=== PATIENT | male | born 1975 | race Caucasian/White ===

== ENCOUNTER 2025-03-02 04:16 | Emergency (ER) | payer OTHER, SELFPAY ==
[2025-03-02] VITALS (15 sets, daily range): BP systolic 147–165; BP diastolic 96–116; PULSE 70–103; RESP 9–15; TEMP 36.7; O2SAT 96–99
--- NOTE | ~2025-03-02 | XR_ITS ---
Clinical Indication: Chest pain PA and lateral views of the chest: Comparison: None Findings: Calcified right midlung granuloma present. There is probable right apical bullous change or scarring. Left lung clear.. Cardiomediastinal silhouette is within normal limits. Bones and soft ti ssues are unremarkable. Impression: No acute abnormality. Probable right apical bullous change or scarring. Correlate for underlying COPD. Reviewed, dictated and finalized at location . Impression: No acute abnormality. Probable right apical bullous change or scarring. Correlate for underlying COPD .
--- NOTE | 2025-03-02 04:17 | ECG_ITS ---
Test Date: 2025-03-02 04:11:05 Measurements Intervals [place] Rate: 74 P: 46 HI: 146 QRS: 62 QRSD: 82 T: 62 QT: 377 QTc: 418 Interpretive Statements SINUS RHYTHM POSSIBLE RIGHT VENTRICULAR CONDUCTION DELAY [RSR (QR) IN V1/V2] No previous ECG available for comparison Electronically Signed On 03-02-2025 17:58:55 CDT by Marin Maki
[2025-03-02 04:36] LABS: Hematocrit 50.2 % (42.0-52.0); Hemoglobin 17.1 g/dL (14.0-18.0); Immature Granulocyte Percent A 0.1 % (0-0.5); Lymphocytes Absolute Auto 3.18 K/mm3 (0.9-3.2); Mean Corpuscular HGB Conc 34.1 g/dl (32-36); Mean Corpuscular Hemoglobin 32.5 pg (26-34); Mean Corpuscular Volume 95.4 fl (80-100); Nucleated Red Blood Cells Absolute Auto 0.000 K/mm3 (0.0-0.012); Nucleated Red Blood Cells Perc 0.0 % (0.0-0.2); Platelet Count Result 377 k/mm3 (150-375); Red Blood Count 5.26 M/mm3 (4.6-6.20); White Blood Count 8.1 K/mm3 (4.5-10.0)
[2025-03-02 04:48] LABS: Alanine Aminotransferase 25 U/L (6-50); Albumin Level 4.7 g/dL (3.5-5.1); Alkaline Phosphatase 78 U/L (38-126); Anion Gap 14 mmol/L (4-12); Aspartate Amino Transferase 46 U/L (17-59); Bilirubin,Total 0.5 mg/dL (0.2-1.3); Blood Urea Nitrogen 9 mg/dL (9-20); Calcium 9.0 mg/dL (8.4-10.2); Carbon Dioxide 24 mmol/L (22-30); Chloride 101 mmol/L (98-107); Estimated Glomerular Filt Rate > 60; Glucose 111 mg/dL (65-110); Potassium 3.3 mmol/L (3.4-5.0); Sodium 139 mmol/L (137-145); Total Protein 8.6 g/dL (6.3-8.2)
[2025-03-02 04:58] LABS: Troponin I 0.012 ng/mL (0.000-0.034)
--- NOTE | 2025-03-02 05:17 | ED.CHESTPAIN ---
HPI - Chest Pain General Chief Complaint: Chest Pain Stated Complaint: cp+sobx3, pain Time Seen by Provider: 03/02/25 05:12 Source: patient and RN notes reviewed Mode of arrival: EMS Limitations: no limitations History of Present Illness HPI narrative: Patient presents with chest pain and shortness of breath that started 3-4 hours prior to arrival. He states it is worse with movement and deep breath. He has a history of an MRI with a stent placed at [facility] in 2021 (circumflex). He is on Plavix but otherwise no other anticoagulation. He reports being nauseated vomiting but denies diaphoresis. Pain is on the left of chest and radiates into the left arm which he states was tingling. No recent surgeries. He has been coughing but denies hemoptysis. Cardiac risk factors HTN: Yes HLD: Yes DM: no Obese: No Smoker: no Personal history WY/TIA/CVA: Yes Fam Hx W[place] in first degree relative <65yo: no Related Data Home Medications ?Medication ?Instructions ?Recorded ?Confirmed ?Last Taken ?Type aspirin 81 mg chewable tablet 03/02/25 Unknown History atorvastatin 40 mg tablet mg 03/02/25 Unknown History clopidogrel 75 mg tablet mg 03/02/25 Unknown History isosorbide mononitrate 30 mg mg PO 03/02/25 Unknown History tablet,extended release 24 hr nitroglycerin 0.4 mg sublingual mg 03/02/25 Unknown History tablet Allergies Allergy/AdvReac Type Severity Reaction Status Date / Time No Known Allergies Allergy Verified 03/02/25 04:25 FORMERLY [facility], [facility] Past Medical History Medical History Hypertension Hyperlipidemia Myocardial infarction Surgical History Surgical History Stented coronary artery Circumflex, 2021, [facility] Social History Social History (Updated 03/02/25 @ 07:46 by Norma Hood MD) Smoking status: Never smoker Occupation/Education: occupation Exam Narrative: GENERAL: Well-appearing, well-nourished, and in no acute distress. HEAD: Normocephalic, atraumatic. EYES: Non injected, non icteric ENT: Nares clear, no rhinorrhea or epistaxis. Gross auditory acuity intact. NECK: Supple. No meningismus. CHEST: Speaking in full sentences. No respiratory distress. Lungs clear to auscultation bilaterally. Pain is not reproducible to palpation HEART: Regular rate and rhythm. . ABDOMEN: Soft, nondistended. No rigidity or guarding. Not peritoneal EXTREMITIES: Normal range of motion. No bilateral lower extremity edema. No TTP inferior to L shoulder girdle SKIN: Warm, dry, no rash. NEURO: No focal deficits. Alert and oriented. Answering questions. Following commands. Normal speech without aphasia or dysarthria. PSYCH: Normal mood and affect. Course Vital Signs Vital signs: Vital Signs Temperature 98.0 F 03/02/25 04:19 Pulse Rate 74 03/02/25 04:19 Respiratory Rate 14 03/02/25 04:19 Blood Pressure 164/116 H 03/02/25 04:19 Pulse Oximetry 96 03/02/25 04:19 Oxygen Delivery Room Air 03/02/25 04:19 Temperature 98.0 F 03/02/25 04:19 Pulse Rate 70 03/02/25 08:06 Respiratory Rate 15 03/02/25 08:06 Blood Pressure 165/103 H 03/02/25 08:06 Pulse Oximetry 97 03/02/25 08:06 Oxygen Delivery Room Air 03/02/25 04:19 MDM - Chest Pain MDM Narrative Medical decision making narrative: Patient presents with chest pain and shortness of breath. Pain is worse with movement as well as deep breaths. History of [place] status post stent to the circumflex In the emergency department he is afebrile with vital signs notable for hypertension. HEART SCORE History 2 highly suspicious 1 moderately suspicious 0 slightly suspicious History score [address] depression/elevation not due to LBBB, LVH, or digoxin [address] depression but LBBB, LVH, nonspecific repolarization changes 0 normal ECG score 0 Age 2 >/= 65 1 45-64 0 <45 Age score 1 Risk factors (HTN, hypercholesterolemia, DM, obesity with BMI >30, current smoker or cessation </=3mo), positive fam hx with parent or sibling with CVD before age 65, atherosclerotic disease (prior [place], PCI/CABG, CVA/TIA, or peripheral arterial disease) 2 >/= 3 risk factors or history of atherosclerotic dz 1 - 1-2 risk factors 0 no known risk factors Risk factor score 2 Initial Troponin 2 >3 times normal limit 1 1-3 times normal limit 0 less than or equal to normal limit Troponin score 0 Total HEART Score 3. Mild hypokalemia. Oral repletion ordered. BNP only mildly elevated, not to a degree to suggest acute heart failure based on the reference range of the assay for patient's age. Dimer normal. Patient reassessed at 6:30 a.m.. He is sleeping, resting comfortably. When awakened he states that his pain is much better. He later states he is having pain again. Morphine ordered. Patient is reassessed at about 7:45 a.m. he states his pain is much better. 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 He notes that it has been awhile since he saw his affirmative action officer to is in [facility] and through [facility]. Does not know if he would be able to reestablish with them although I did encourage this. Alternatively, he will be given the name of a affirmative action officer in [place]. He also notes that he has been out of his Imdur for the past 2-3 days. Will refill this. Denies any Plavix, nitroglycerin, or other medications he takes. He confirms he has a primary care physician. He reports that he had been taking nitroglycerin at home but no change in symptoms. Differential Diagnosis Differential diagnosis: Likely pneumothorax, stable angina, unstable angina pectoris, atypical chest pain, st elevation myocardial infarction, chest pain, biliary colic and other (Pneumonia, pulmonary embolism; musculoskeletal) Lab Data Attestation: I reviewed the patient's lab results. Lab results narrative: Mild thrombocytosis 03/02/25 04:20 03/02/25 04:20 Labs: Lab Results 03/02/25 03/02/25 03/02/25 Range/Units 04:20 06:14 07:02 WBC 8.1 (4.5-10.0) K/mm3 RBC 5.26 (4.6-6.20) M/mm3 Hgb 17.1 (14.0-18.0) g/dL Hct 50.2 (42.0-52.0) % MCV 95.4 (80-100) fl MCH 32.5 (26-34) pg MCHC 34.1 (32-36) g/dl RDW 13.8 (11.5-14.5) % Plt Count 377 H (150-375) k/mm3 MPV 8.5 (7.4-10.4) fl Immature Gran % (Auto) 0.1 (0-0.5) % Neut % (Auto) 50.8 (45.5-73.1) % Lymph % (Auto) 39.4 (18.3-44.2) % [place] % (Auto) 6.6 (2.6-8.5) % Eos % (Auto) 1.7 (0-4.4) % Baso % (Auto) 1.4 H (0.2-1.2) % Lymph # (Auto) 3.18 (0.9-3.2) K/mm3 [place] # (Auto) 0.5 (0.1-0.6) K/mm3 Eos # (Auto) 0.1 (0-0.3) K/mm3 Baso # (Auto) 0.1 (0.0-0.1) K/mm3 Abs Immat Gran (auto) 0.01 (0.00-0.031) K/mm3 Absolute Neuts (auto) 4.1 (1.3-6.7) K/mm3 Absolute Nucleated RBC 0.000 (0.0-0.012) K/mm3 Nucleated RBC % 0.0 (0.0-0.2) % D-Dimer < 0.27 (<0.48) ug/mL Sodium 139 (137-145) mmol/L Potassium 3.3 L (3.4-5.0) mmol/L Chloride 101 (98-107) mmol/L Carbon Dioxide 24 (22-30) mmol/L Anion Gap 14 H (4-12) mmol/L BUN 9 (9-20) mg/dL Creatinine 1.16 (0.7-1.3) mg/dL Estim Creat Clear Calc Not Reportable Estimated GFR > 60 (59 - ) Glucose 111 H (65-110) mg/dL Calcium 9.0 (8.4-10.2) mg/dL Magnesium 2.0 (1.6-2.3) mg/dL Total Bilirubin 0.5 (0.2-1.3) mg/dL AST 46 (17-59) U/L ALT 25 (6-50) U/L Alkaline Phosphatase 78 (38-126) U/L Troponin I 0.012 < 0.012 (0.000-0.034) ng/mL NT-Pro-B Natriuret Pep 145 H (19.9-100) pg/mL Total Protein 8.6 H (6.3-8.2) g/dL Albumin 4.7 (3.5-5.1) g/dL Influenza A (RT-PCR) Negative (Negative) Influenza B (RT-PCR) Negative (Negative) RSV (RT-PCR) Negative (Negative) SARS-CoV-2 RNA (RT-PCR) Negative (Negative) Imaging Data Attestation: I personally reviewed and interpreted this imaging study as follows: My impression: Slight haziness of right middle lobe on my independent interpretation of chest x-ray Radiologist's impression: Impressions Chest X-Ray 03/02/25 05:47 Impression: No acute abnormality. Probable right apical bullous change or scarring. Correlate for underlying COPD. ECG Data EKG #1: Attestation: I personally reviewed and interpreted this ECG as follows: ECG completion date: 03/02/25 ECG completion time: 04:11 Prior ECG tracings: not available for review (No prior for comparison) Interpretation: Normal sinus rhythm at a rate of 74 beats per minute. HI interval 146. QRS 82. QT/QTC 377/404. Good R-wave progression across the precordial leads. No T-wave inversions. RSR pattern in V1 and V2. EKG #2: Attestation: I personally reviewed and interpreted this ECG as follows: ECG completion date: 03/02/25 ECG completion time: 07:08 Interpretation: Normal sinus rhythm at a rate of 67 beats per minute. HI interval 148. QRS 85. QT/QTC 406/421. Good R-wave progression across the precordial leads. No T-wave inversions. Normal axis. Normal ECG. Discharge Plan Discharge Clinical Impression: Chest pain, Thrombocytosis, Hypokalemia, Encounter for medication refill Patient Disposition: Home Condition: Stable Instructions: Antibiotic Form, Chest Pain (DC), Hypokalemia (ED) Additional Instructions: It is important you follow-up with Cardiology, either through the affirmative action officer you previously saw years ago in [place] through [employer] [facility] or, alternatively, the name of a affirmative action officer is listed below. Your Imdur is being refilled. Continue taking all of your medications as prescribed. Return to the emergency department any new or worsening symptoms. Follow-up with your primary care physician as well. Patient Language: Telugu Prescriptions: New isosorbide mononitrate 30 mg tablet extended release 24 hr 30 mg PO DAILY Qty: 30 0RF No Action isosorbide mononitrate 30 mg tablet extended release 24 hr PO clopidogrel 75 mg tablet aspirin 81 mg tablet,chewable atorvastatin 40 mg tablet nitroglycerin 0.4 mg tablet, sublingual Follow-up/Referrals: Marin Maki MD [Physician] - (cardiology) Stand Alone Forms: Work/School Release IP Time of Disposition: 07:53
[2025-03-02] MEDS: NITROGLYCERIN SL 0.4 MG TABLET SUBLINGUAL (05:34)
[2025-03-02] MEDS: POTASSIUM BICARBONATE 25 MEQ TABEF PO (05:40)
[2025-03-02 05:50] LABS: NT Pro B Type Natriuretic Pept 145 pg/mL (19.9-100)
--- OUTSIDE RECORDS SUMMARY | 2025-03-02 06:07 | XMS_ITS | Referral Summary ---
Author Organization [facility] Address [address] [place] [address] Care Team Providers Care A And P Technician Name Role Phone Irineo Meza MD Unavailable [phone] Rupert Lopes MD Primary Care Provider [phone] Allergies No known active allergies Medications aspirin 81 mg enteric coated tabletIndication s:cardiovascular disease Take 1 tablet (81 mg total) by mouth daily 30 tablet 11 2 Active atorvastatin (LIPITOR) 40 mg tablet Take 1 tablet (40 mg total) by mouth nightly 30 tablet 11 2 Active clopidogreL (PLAVIX) 75 mg tablet Take 1 tablet (75 mg total) by mouth daily Active levothyroxine (SYNTHROID) 100 mcg tablet Take 1 tablet (100 mcg total) 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 Active isosorbide mononitrate ER (IMDUR) 30 mg 24 hr tablet Take 1 tablet (30 mg total) by mouth daily 30 tablet 3 Active Active Problems Problem Noted Date Diagnosed Date Acute chest pain 09/30/2023 Chest pain, rule out acute myocardial infarction 04/23/2023 Dyslipidemia 04/23/2023 HTN (hypertension) 04/23/2023 CAD (coronary artery disease) 04/23/2023 Hypothyroid 04/23/2023 Resolved Problems Problem Noted Date Diagnosed Date Resolved Date Chest pain, unspecified type 07/30/2023 09/30/2023 Other chest pain 07/30/2023 09/30/2023 NSTEMI (non-ST elevated myoc ardial infarction) 04/01/2022 04/24/2023 Overview (04/02/2022): Added automatically from request for surgery [id number] Social History Tobacco Use Types Packs/Day Years Used Date Smoking Tobacco: Every Day Cigarettes Tobacco Cessation:Ready to Q uit: Not Asked [facility] Utilities Answer Date Recorded In the past 12 months has e [employer], gas, oil, or water [employer] threatened to shut off services in your home? No 10/02/2023 Social Connection and Isolat ion Panel [NHANES] Answer Date Recorded In a typical week, how many times do you talk on the phone with family, friends, or neighbors? More than three times a week 10/02/2023 Frequency of Social Gatherin gs with Friends and Family Not on file 10/02/2023 How often do you attend chur ch or confucianism services? Never 10/02/2023 Do you belong to any clubs o r organizations such as protestant groups, unions, fraternal or athletic groups, or school groups? No 10/02/2023 How often do you attend meet ings of the clubs or organizations you belong to? Never 10/02/2023 Are you , , di vorced, , never , or living with a partner? Living with partner 10/02/2023 AUDIT-C Answer Date Recorded Q1: How often do you have a drink containing alc ohol? 2-3 times a week 10/02/2023 Q2: How many drinks containi ng alcohol do you have on a typical day when you are drinking? 3 or 4 10/02/2023 Q3: How often do you have si x or more drinks on one occasion? Never 10/02/2023 Overall Financial Resource Strain (CARDIA) Answe r Date Recorded How hard is it for you to pa y for the very basics like food, housing, medical care, and heating? Not hard at all 10/02/2023 Hunger Vital Sign Answer Date Recorded Within the past 12 months, y ou worried that your food would run out before you got the money to buy more. Never true 10/02/19 24 Within the past 12 months, t he food you bought just didn't last and you didn't have money to get more. Never true 10/02/2023 PRAPARE - Transportation Answer Date Re corded In the past 12 months, has l ack of transportation kept you from medical appointments or from getting medications? No 09/04 In the past 12 months, has l ack of transportation kept you from meetings, work, or from getting things needed for daily living? No 10/02/2023 Housing Stability Vital Sign Answer Zechariah e Recorded In the last 12 months, was t here a time when you were not able to pay the mortgage or rent on time? No 10/02/2023 In the last 12 months, how many places have you lived? 1 10/02/2023 In the last 12 months, was t here a time when you did not have a steady place to sleep or slept in a retirement (including now)? No 10/02/2023 Personal Safety Answer Date Recorded Have you ever been in or are you currently in a harmful physical or emotional relationship or is someone making you feel afraid or unsafe? Denies 10/01/2023 Sex and Gender Information Value Date Recorded Sex Assigned at Not on file Legal Sex Male 12:41 PM CDT Gender Identity Not on file Sexual Orientation Not on file Last Filed Vital Signs Vital Sign Reading Time Taken Comments Blood Pressure 115/74 10/02/2023 4:43 PM GREIGE MENDER Pulse 59 10/02/2023 4:00 AM GREIGE MENDER Temperature 36.9 C (98.5 F) 10/02/2023 4:43 PM GREIGE MENDER Respiratory Rate 17 10/02/2023 4:43 PM GREIGE MENDER Oxygen Saturation 97% 10/02/2023 4:43 PM GREIGE MENDER Inhaled Oxygen Concentration - - Weight 84.6 kg (186 lb 6.4 oz) 10/01/2023 12:36 AM GREIGE MENDER Height 185.4 cm (6' 0.99) 10/01/2023 12:[address] Body Mass Index 24.6 10/01/2023 12:36 AM GREIGE MENDER Plan of Treatment Not on file Medical Devices Implanted Type Area Filtering Machine Tender Helper Device Identifier Shelf Expiration Date Model / Serial / Lot [employer] Resolute Sourav Ux 3.0x38mm Carlos Stent [id number] - [id number] Implanted:Qty: 1 on 04/02/2022 by Irineo Meza MD at [facility] [employer] 11/06/2024 [id number] / / [id number] Insurance [facility] Address: [place] [address] [facility]O Address: [place] [address] [employer] [facility]O Address: [facility] [address] [place] [address] Advance Directives For more information, please contact: [phone] * Full Code (Latest Code Status on File) Date Activated Date Inactivated Comments 09/30/2023 11:18 PM 10/03/2023 2:46 AM * Full Code Date Activated Date Inactivated Comments 09/30/2023 7:22 PM 09/30/2023 11:18 PM * Full Code Date Activated Date Inactivated Comments 07/30/2023 9:31 AM 07/30/2023 8:50 PM * Full Code Date Activated Date Inactivated Comments 04/23/2023 9:24 PM 04/25/2023 9:58 PM * Full Code Date Activated Date Inactivated Comments 04/23/2023 4:25 PM 04/23/2023 9:24 PM Care Teams A And P Technician Relationship Specialty Start Date End Date Rupert Lopes MD [address] [place] [address] PCP - General Internal Medicine 04/24/23 Irineo Meza MD [address] [place] [address] Consulting Physician Cardiovascular Disease 04/03/22
--- OUTSIDE RECORDS SUMMARY | 2025-03-02 06:07 | XMS_ITS | Clinical Summary ---
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 Active isosorbide mononitrate ER (IMDUR) [...] (04/02/2022): Added automatically from request for surgery [id number] Surgical History Surgery Date Site/Laterality Comments CARDIAC STENT PLACEMENT Medical History Medical History Date Comments Heart attack (HCC) Social History Tobacco Use Types Packs/Day Years Used Date Smoking Tobacco: Every Day Cigarettes Tobacco Cessation:Ready to Q uit: Not Asked [facility] Utilities Answer Date Recorded In the past 12 months has th e [employer], gas, oil, or water [employer] threatened to shut off services in your [...] 10/02/2023 How often do you attend chur or pentecostalism services? Never 10/02/2023 Do you belong to any clubs o r organizations such as buddhist groups, unions, fraternal or athletic groups, or [...] place to sleep or slept in a correction (including now)? No 10/02/2023 Personal Safety Answer [...] on file Sexual Orientation Not on file Obstetrics History Last Filed Vital Signs Vital Sign Reading Time Taken Comments Blood Pressure 115/74 10/02/2023 4:43 PM RUG REPAIRER Pulse 59 10/02/2023 4:00 AM RUG REPAIRER Temperature 36.9 C (98.5 F) 10/02/2023 4:43 PM RUG REPAIRER Respiratory Rate 17 10/02/2023 4:43 PM RUG REPAIRER Oxygen Saturation 97% 10/02/2023 4:43 PM RUG REPAIRER Inhaled Oxygen Concentration - - Weight 84.6 kg (186 lb 6.4 oz) 10/01/2023 12:36 AM RUG REPAIRER Height 185.4 cm (6' 0.99) 10/01/2023 12:[address] Body Mass Index 24.6 10/01/2023 12:36 AM RUG REPAIRER Plan of Treatment Health Maintenance Due Date Last Done Comments Colon Cancer Screening-Colonoscopy 1976 Depression Screening 1976 Hepatitis C Screening 1976 DTaP/Tdap/Td Vaccine (1 - Tdap) 1987 Hepatitis B Screening 1994 Regular Well Visit/Exam 18-64 1994 Pneumococcal vaccine <65 (1 of 2 - PCV) 1995 Influenza Vaccine (Season Ended) 2025 06/04/20 22 Medical Devices Implanted Type Area Millwork Estimator Device Identifier Shelf Expiration Date Model / Serial / Lot [employer] Resolute Sourav Ux 3.0x38mm Carlos Stent [id number] - [id number] Implanted:Qty: 1 on 04/02/2022 by Irineo Meza MD at [facility] [employer] 11/06/2024 [id number] / / [id number] Insurance [facility] CHOICE PLUS CHOICE PLUS [place] [id number] [facility] CHOICE PLUS Advance Directives For more information, please contact: [phone] * Full Code (Latest Code Status on [...] 4:25 PM 04/23/2023 9:24 PM Care Teams Professional Benefits Sales Consultant Relationship Specialty Start Date End Date Rupert Lopes MD [address] [place] [address] PCP - General Internal Medicine 04/24/23 Irineo Meza MD [address] [place] [address] Consulting Physician Cardiovascular Disease 04/03/22
--- OUTSIDE RECORDS SUMMARY | 2025-03-02 06:07 | XMS_ITS | Data Portability ---
Author Organization [place] [facility], Main Office Address [address] [place] [address] Care Team Providers Care Strawhat Sizer Name Role Phone ROSEYJEREMI ANALIDARIA Primary Care Provider [phone] KANIKA MEZA Tile Setter Supervisor Assessment Encounter Date Assessment Date Assessment LastModified by Organization Details LastModified Time 11/26/2022 11/26/2022 I have reconciled the patient's medications post their discharge from inpatient facility. Secondary preventive measures for heart disease have been discussed importance of taking medications as prescribed discussed he will follow-up in 3 months all questions answered hypothyroid hypertension dyslipidemia CAD discussed [email or web address] Not available 12/08/2022 20:59:24 07/02/2024 07/02/2024 I have reconciled the patient's medications post their discharge from inpatient facility. [email or web address] Not available 07/02/2024 10:29:00 Plan of Treatment Reminders Order Date Submit Date Provider Last Modified By Organization Details Last Modified Time Details Appointments None recorded. Lab glycohemogl obin, total, blood 2023 024 [email or web address] [facility] (Lab), [address] [place], [address], 5 12:41:38 microalbumi n, urine 2023 024 [email or web address] [facility] (Lab), [address] [place], [address], 5 10:30:51 noninvasive colorectal cancer DNA + occult blood screening, QL, stool 2023 024 GABBI [facility] (Cologuard Orders Only), [address], [address], [place], [address], 4 19:47:01 lipid panel, serum 2023 024 [email or web address] 6 [facility] (Lab), [address] [place], [address], 5 12:41:37 TSH, serum or plasma [email or web address] [place] [address] (Lab), [address] [place], [address], 5 12:41:37 CBC w/ auto diff 2023 024 [email or web address] [address] [place] [address] (Lab), [address] [place], [address], 5 12:41:37 CMP, serum or plasma 2023 024 [email or web address] [address] [place] [address] (Lab), [address] [place], [address], 5 12:41:37 vitamin B12 + folate, serum or blood 2023 024 [email or web address] [address] [place] [address] (Lab), [address] [place], [address], 5 12:41:38 noninvasive colorectal cancer DNA + occult blood screening, QL, stool 2023 024 [email or web address] 6 [facility] (Cologuard Orders Only), [address], [address], [place], [address], 5 12:50:52 lipid panel, serum 2023 [email or web address] [place] [address] (Lab), [address] [place], [address], 5 12:50:51 TSH, serum or plasma 2023 024 [email or web address] 6 [facility] (Lab), [address] [place], [address], 5 12:50:51 CBC w/ auto diff 2023 [email or web address] [place] [address] (Lab), [address] [place], [address], 5 12:50:51 CMP, serum or plasma 2023 [email or web address] [place] [address] (Lab), [address] [place], [address], 5 12:50:51 vitamin B12 + folate, serum or blood 2023 [email or web address] [place] [address] (Lab), [address] [place], [address], 5 12:50:52 Referral nephrologis t referral - Please call patient to schedule. 2023 024 [email or web address] 6 Howard Perez MD (Nephrology, [address], [address], [place], [address], 5 11:30:06 safety counselor referral - Please call patient to schedule. 2023 024 [email or web address] 6 Herminio Razo DPM, [address] [facility], [address], [place], [address], 5 11:30:05 cardiologis t referral 2023 024 [email or web address] Kanika Meza MD, [address] [facility], [address], [place], [address], 12:29:13 cardiologis t referral 2023 [email or web address] Kanika Meza MD, [address], [address], [place], [address], 08:32:36 Procedures None recorded. Surgeries None recorded. Imaging None recorded. Medication Orders Unithroid 125 mcg tablet 2023 [facility] #[id number], [address], [place], [address], 10:48:50 Patient TargetsNo targets recorded. Patient Instructions Encounter Date Encounter Id Patient Instructions Last Modified By Organization Details Last Modified Time 11/26/2022 [id number] Thank you for your visit to our office today. We would like to request that you reach out to your referring or previous provider and request that they send us a Summary of Care in electronic form, so that we may have it on file in your medical record. At your visit, we had the medical records we needed to provide you with the best possible care; however, for insurance purposes, an electronic Summary of Care is beneficial. Thank you for your assistance in obtaining this information and we look forward to providing continued care to you. Please review your medication list from the Summary of Care for this visit. If there are any differences from what you are currently taking at home, please call us to discuss. Not available 11/26/2022 10:41:41 Homebound Status : Required Home Health Services: Durable Medical Equipment needed: Billing Guidelines CPT code 62536- Transitional Care Management services with moderate medical decision complexity (glyt-eo-ujbg visit within 14 days of discharge). CPT code 46231- Transitional Care Management services with high medical decision complexity (pihv-fh-zrev visit within 7 days of discharge). Not available 11/26/2022 10:41:41 07/02/2024 [id number] diabetic eye exam* [email or web address] Not available 12/29/2024 08:11:43 Thank you for your visit to our office today. We would like to request that you reach out to your referring or previous provider and request that they send us a Summary of Care in electronic form, so that we may have it on file in your medical record. At your visit, we had the medical records we needed to provide you with the best possible care; however, for insurance purposes, an electronic Summary of Care is beneficial. Thank you for your assistance in obtaining this information and we look forward to providing continued care to you. Please review your medication list from the Summary of Care for this visit. If there are any differences from what you are currently taking at home, please call us to discuss. [email or web address] Not available 07/02/2024 10:10:43 Homebound Status : Required Home Health Services: Durable Medical Equipment needed: Billing Guidelines CPT code 01040- Transitional Care Management services with moderate medical decision complexity (fbbe-wi-mdtk visit within 14 days of discharge). CPT code 20922- Transitional Care Management services with high medical decision complexity (nomc-fb-dkof visit within 7 days of discharge). [email or web address] Not available 07/02/2024 10:10:43 Reason for Referral Tile Setter Supervisor Referral for Co ronary arteriosclerosis Referring Physician: Yamilex Torres [facility], Encounter Date: 04/08/2024 Tile Setter Supervisor Referral for Co ronary arteriosclerosis Referring Physician: Yamilex Torres [facility], Encounter Date: 07/02/2024 Vending Machine Mechanic Referral for Pred iabetes Please call patient to schedule. Referring Physician: Yamilex Torres [facility], Encounter Date: 07/02/2024 Guest Service Manager Referral for Ch ronic kidney disease Please call patient to schedule. Referring Physician: Yamilex Torres [facility], Encounter Date: 07/02/2024 Results Created Date Observation Date Name Description Value Unit Range Abnormal Flag Note LastModifiedBy Organization Detail LastModifiedTime 03/27/20 21 03/27/2021 TSH thyroid-stim ulating hormone 34.600 uIU/m L 0.465- 4.680 high Not Available [facility] (Lab) [address] [place], [address], 03/27/2021 16:28:20 03/27/20 21 03/27/2021 T3 FREE free T3 3.6 pg/mL 2.77-5 .27 Not Available [facility] (Lab) [address] [place], [address], 03/27/2021 16:26:53 03/27/20 21 03/27/2021 T4 FREE free T4 0.89 NG/dL 0.78-2 .19 Not Available [facility] (Lab) [address] [place], [address], 03/27/2021 16:26:48 03/27/20 21 03/27/2021 LIPID PANEL cholesterol 261 mg/dL 140-19 9 high NIH OLENA NSUS RECOM MENDA TION FOR MAX STERO L: ADULT CHILD LOW RISK: <200 <170 BORDE RLINE : <200- 239 ----- HIGH RISK: >240 >200 Not Available [facility] (Lab) [address] [place], [address], 03/27/2021 16:25:22 03/27/20 21 03/27/2021 LIPID PANEL triglyceride s 193 mg/dL 0-150 high NIH OLENA NSUS REPOR T RECOM MENDA TION FOR TRIGL YCERI JOSUÉ: ADULT CHILD LOW RISK: <150 ----- BODER LINE: 150-1 99 ----- HIGH RISK: >200 ----- Not Available [facility] (Lab) [address] [place], [address], 03/27/2021 16:25:22 03/27/20 21 03/27/2021 LIPID PANEL HDL cholesterol 85 mg/dL 40- Not Available [facility] (Lab) [address] [place] [address], [address], 03/27/2021 16:25:22 03/27/20 21 03/27/2021 LIPID PANEL LDL cholesterol, calculated 137 mg/dL 0-130 high NIH OLENA NSUS REPOR T RECOM MENDA TIONS FOR LDL: ADULT CHILD LOW RISK <130 <110 (OPTI MAL LDL) <100 ----- BORDE RLINE : 130-1 59 ----- HIGH RISK: >160 >130 A TRIGL YCERI DE RESUL T >400 INVAL IDATE S THE CALCU LATIO N FOR LDL FRACT IONAT ION - THE LDL RESUL T WILL NOT BE REPOR MANUEL. Not Available [facility] (Lab) [address] [place], [address], 03/27/2021 16:25:22 03/27/20 21 03/27/2021 COMPR EHENS KIRSTEN METAB OLIC PANEL sodium 142 mmol/ L 137-14 5 Not Available [facility] (Lab) [address] [place], [address], 03/27/2021 16:25:10 03/27/20 21 03/27/2021 COMPR EHENS KIRSTEN METAB OLIC PANEL potassium 4.4 mmol/ L 3.5-5. 1 Not Available [facility] (Lab) [address] [place], [address], 03/27/2021 16:25:10 03/27/20 21 03/27/2021 COMPR EHENS KIRSTEN METAB OLIC PANEL chloride 105 mmol/ L 98-107 Not Available [facility] (Lab) [address] [place], [address], 03/27/2021 16:25:10 03/27/20 21 03/27/2021 COMPR EHENS KIRSTEN METAB OLIC PANEL carbon dioxide 28 mmol/ L 22-30 Not Available [facility] (Lab) [address] [place], [address], 03/27/2021 16:25:10 03/27/20 21 03/27/2021 COMPR EHENS KIRSTEN METAB OLIC PANEL agap 13.4 mmol/ L 14-22 low Not Available [facility] (Lab) [address] [place], [address], 03/27/2021 16:25:10 03/27/20 21 03/27/2021 COMPR EHENS KIRSTEN METAB OLIC PANEL glucose 64 mg/dL 70-99 low Not Available [facility] (Lab) [address] [place], [address], 03/27/2021 16:25:10 03/27/20 21 03/27/2021 COMPR EHENS KIRSTEN METAB OLIC PANEL BUN 5 mg/dL 8-19 low Not Available [facility] (Lab) [address] [place], [address], 03/27/2021 16:25:10 03/27/20 21 03/27/2021 COMPR EHENS KIRSTEN METAB OLIC PANEL creatinine 0.74 mg/dL 0.66-1 .25 Not Available [facility] (Lab) [address] [place], [address], 03/27/2021 16:25:10 03/27/20 21 03/27/2021 COMPR EHENS KIRSTEN METAB OLIC PANEL GFR >60 Refer ence Range : [place] ge GFR Healt hy Adult : >60 mL/mi n/1.7 3 m2 Chron ic Kidne y Disea se: 15-60 mL/mi n/1.7 3 m2 Kidne y Failu re: <15/m L/min /1.73 m2 www.n iddk. nih.g ov MDRD study equat ion hasn' t been valid ated in child dimitris <18 yrs of age, pregn ant women , the elder ly >85 yrs of age, or in some racia l or ethni c subgr oups, suc as Hispa nics. Outsi de the valid ated ralf eters , estim ated GFR is less accur ate requi ring clini bernard judgm ent on a case by case basis . Clini bernard inter preta tion for other races and ages must be made by the clini benjamin . Futhe rmore , any of th e limit ation s with the use of serum creat inine relat ed to nutri gladis l statu s o r medic ation usage hasn' t accou nted for the MDRD Study equat ion. For perso ns < 18 yrs of age, a pedia tric GFR calcu lator can be locat ed on the [facility] websi te: https :[email or web address] almazan.chrissy wang/[place] s/kdo qi/gf r_cal culat or Not Available [facility] (Lab) [address] [place], [address], 03/27/2021 16:25:10 03/27/20 21 03/27/2021 COMPR EHENS KIRSTEN METAB OLIC PANEL alkaline phosphatase 66 U/L 38-126 Not Available [facility] (Lab) [address] [place], [address], 03/27/2021 16:25:10 03/27/20 21 03/27/2021 COMPR EHENS KIRSTEN METAB OLIC PANEL alanine aminotransfe rase 17 U/L 0-50 Not Available [facility] (Lab) [address] [place], [address], 03/27/2021 16:25:10 03/27/20 21 03/27/2021 COMPR EHENS KIRSTEN METAB OLIC PANEL aspartate aminotransfe rase 34 U/L 15-46 Not Available [facility] (Lab) [address] [place], [address], 03/27/2021 16:25:10 03/27/20 21 03/27/2021 COMPR EHENS KIRSTEN METAB OLIC PANEL bilirubin, total 0.40 mg/dL 0.20-1 .30 Not Available [facility] (Lab) [address] [place], [address], 03/27/2021 16:25:10 03/27/20 21 03/27/2021 COMPR EHENS KIRSTEN METAB OLIC PANEL calcium 9.7 mg/dL 8.4-10 .2 Not Available [facility] (Lab) [address] [place], [address], 03/27/2021 16:25:10 03/27/20 21 03/27/2021 COMPR EHENS KIRSTEN METAB OLIC PANEL total protein 8.6 g/dL 6.3-8. 2 high Not Available [facility] (Lab) [address] [place], [address], 03/27/2021 16:25:10 03/27/20 21 03/27/2021 COMPR EHENS KIRSTEN METAB OLIC PANEL albumin 5.1 g/dL 3.4-5. 0 high Not Available [facility] (Lab) [address] [place], [address], 03/27/2021 16:25:10 03/27/20 21 03/27/2021 COMPR EHENS KIRSTEN METAB OLIC PANEL globulin 3.5 g/dL 2.6-4. 2 Not Available [facility] (Lab) [address] [place], [address], 03/27/2021 16:25:10 03/27/20 21 03/27/2021 COMPR EHENS KIRSTEN METAB OLIC PANEL A/G ratio 1.5 ratio 1.0-2. 0 Not Available [facility] (Lab) [address] [place], [address], 03/27/2021 16:25:10 03/27/20 21 03/27/2021 CBC/C OMPLE TE BLD COUNT W/DIF F white blood cells 11.5 x10'3 /uL 4.2-10 .8 high Not Available [facility] (Lab) [address] [place], [address], 03/27/2021 14:37:03 03/27/20 21 03/27/2021 CBC/C OMPLE TE BLD COUNT W/DIF F red blood cells 4.16 x10'6 /uL 4.10-5 .80 Not Available [facility] (Lab) [address] [place], [address], 03/27/2021 14:37:03 03/27/20 21 03/27/2021 CBC/C OMPLE TE BLD COUNT W/DIF F hemoglobin 13.9 g/dL 13.2-1 7.0 Not Available [facility] (Lab) [address] [place], [address], 03/27/2021 14:37:03 03/27/20 21 03/27/2021 CBC/C OMPLE TE BLD COUNT W/DIF F hematocrit 43.0 % 39.3-5 0.0 Not Available [facility] (Lab) [address] [place], [address], 03/27/2021 14:37:03 03/27/20 21 03/27/2021 CBC/C OMPLE TE BLD COUNT W/DIF F mean red cell volume 103.4 fL 80.0-9 7.0 high Not Available [facility] (Lab) [address] [place], [address], 03/27/2021 14:37:03 03/27/20 21 03/27/2021 CBC/C OMPLE TE BLD COUNT W/DIF F mean red cell hemoglobin 33.4 pg 27.0-3 3.0 high Not Available [facility] (Lab) [address] [place], [address], 03/27/2021 14:37:03 03/27/20 21 03/27/2021 CBC/C OMPLE TE BLD COUNT W/DIF F mean RBC HGB concentratio n 32.3 g/dL 31.0-3 6.0 Not Available [facility] (Lab) [address] [place], [address], 03/27/2021 14:37:03 03/27/20 21 03/27/2021 CBC/C OMPLE TE BLD COUNT W/DIF F red cell distribution width 14.1 % 11.8-1 5.5 Not Available [facility] (Lab) [address] [facility] [place], [address], 03/27/2021 14:37:03 03/27/20 21 03/27/2021 CBC/C OMPLE TE BLD COUNT W/DIF F platelets 500 x10'3 /uL 150-40 0 high Not Available [facility] (Lab) [address] [place], [address], 03/27/2021 14:37:03 03/27/20 21 03/27/2021 CBC/C OMPLE TE BLD COUNT W/DIF F mean platelet volume 9.3 fL 9.0-12 .4 Not Available [facility] (Lab) [address] [place], [address], 03/27/2021 14:37:03 03/27/20 21 03/27/2021 CBC/C OMPLE TE BLD COUNT W/DIF F neutrophils 64.4 % 39.0-7 2.0 Not Available [facility] (Lab) [address] [place], [address], 03/27/2021 14:37:03 03/27/20 21 03/27/2021 CBC/C OMPLE TE BLD COUNT W/DIF F lymphocytes 25.9 % 16.0-4 7.0 Not Available [facility] (Lab) [address] [place], [address], 03/27/2021 14:37:03 03/27/20 21 03/27/2021 CBC/C OMPLE TE BLD COUNT W/DIF F monocytes 6.9 % 5.0-12 .0 Not Available [facility] (Lab) [address] [place], [address], 03/27/2021 14:37:03 03/27/20 21 03/27/2021 CBC/C OMPLE TE BLD COUNT W/DIF F eosinophils 1.4 % 1.0-7. 0 Not Available [facility] (Lab) [address] [place], [address], 03/27/2021 14:37:03 03/27/20 21 03/27/2021 CBC/C OMPLE TE BLD COUNT W/DIF F basophils 1.1 % 0.0-2. 0 Not Available [facility] (Lab) [address] [place], [address], 03/27/2021 14:37:03 03/27/20 21 03/27/2021 CBC/C OMPLE TE BLD COUNT W/DIF F immature granulocytes 0.3 % 0.00-0 .50 Not Available [facility] (Lab) [address] [place], [address], 03/27/2021 14:37:03 03/27/20 21 03/27/2021 CBC/C OMPLE TE BLD COUNT W/DIF F neutrophils, absolute count 7.38 x10'3 /uL 1.5-8. 0 Not Available [facility] (Lab) [address] [place], [address], 03/27/2021 14:37:03 03/27/20 21 03/27/2021 CBC/C OMPLE TE BLD COUNT W/DIF F lymphocytes, absolute count 2.97 x10'3 /uL 1.07-3 .43 Not Available [facility] (Lab) [address] [place], [address], 03/27/2021 14:37:03 03/27/20 21 03/27/2021 CBC/C OMPLE TE BLD COUNT W/DIF F monocytes, absolute count 0.79 x10'3 /uL 0.29-0 .99 Not Available [facility] (Lab) [address] [place], [address], 03/27/2021 14:37:03 03/27/20 21 03/27/2021 CBC/C OMPLE TE BLD COUNT W/DIF F eosinophils, absolute count 0.16 x10'3 /uL 0.02-0 .53 Not Available [facility] (Lab) [address] [place], [address], 03/27/2021 14:37:03 03/27/20 21 03/27/2021 CBC/C OMPLE TE BLD COUNT W/DIF F basophils, absolute count 0.13 x10'3 /uL 0.01-0 .08 high Not Available [facility] (Lab) [address] [place], [address], 03/27/2021 14:37:03 03/27/20 21 03/27/2021 CBC/C OMPLE TE BLD COUNT W/DIF F immature granulocytes ,absolute 0.04 x10'3 /uL 0.00-0 .05 Not Available [facility] (Lab) [address] [place], [address], 03/27/2021 14:37:03 03/27/20 21 03/27/2021 CBC/C OMPLE TE BLD COUNT W/DIF F nucleated red blood cells 0.0 % -0 Not Available [facility] (Lab) [address] [place], [address], 03/27/2021 14:37:03 03/27/20 21 03/27/2021 CBC/C OMPLE TE BLD COUNT W/DIF F NRBC# 0.00 x10'3 /uL Not Available [facility] (Lab) [address] [place], [address], 03/27/2021 14:37:03 08/20/20 24 06/22/2024 XR, chest No observ ation record ed. [email or web address] Not Available 08/24 09:17:21 08/20/20 24 06/22/2024 US, abdom en No observ ation record ed. [email or web address] Not Available 2023 16:25:38 Result Notes None recorded. Problems Name Problem SNOMED Code Status Onset Date Resolution Date Notes Provider Name and Address Organization Details Recorded Time Dyslipidem ia 846912716 Active 2020 Not Available [facility] 3 17:46:49 Hypothyroi dism 18705651 Active 2020 Not Available [facility] 3 17:46:49 Essential hypertensi on 45085907 Active 2020 Not Available [facility] 3 17:46:49 Coronary atheroscle rosis 115553525 Active 2022 Rupert Lopes MD [address], [address], [place], [address] , [employer] 3 20:59:35 Hyperlipid emia 11986261 Active 2023 Yamilex beauchamp MD [address], [address], [place], [address] , [employer] 4 19:05:16 Coronary arterioscl erosis 23411745 Active 2023 Yamilex beauchamp MD [address], [address], [place], [address] , [employer] 4 19:06:34 Pain of left shoulder joint 0700092242311 9109 Active 2023 Yamilex beauchamp MD [address], [address], [place], [address] , [employer] 4 11:31:21 Cigarette smoker 13843876 Active 2023 Yamilex beauchamp MD [address], [address], [place], [address] , [employer] 4 11:31:33 Serum vitamin B12 below reference range 404616792 Active 2023 Yamilex beauchamp MD [address], [address], [place], [address] , [employer] 4 11:31:42 Prediabete s 070139051 Active 2023 Yamilex beauchamp MD [address], [place], [address] , [facility] [employer] [facility] [employer] [facility] 10:46:08 Chronic kidney disease 380435761 Active 2023 Yamilex beauchamp MD [address], [address], [place], [address] , [employer] [facility] [employer] [facility] 10:46:58 Problem Notes None recorded. Procedures Surgical History Date Name Laterality Status Provider Name and Address Organization Details Recorded Time 07/02/20 24 Transitional_Care_ Management completed Yamilex Torres MD [address], [facility] [address], [place], [address], [employer] [facility] [email or web address] [facility] 07/02/2024 18:14:42 11/27/19 23 Transitional_Care_ Management completed Roxana Asencio RN [facility] [employer] [facility] 11/26/2022 10:41:41 cardiac catheterization completed Roxana Asencio RN [facility] [employer] [facility] 11/26/2022 10:46:58 Cardiac Stent Placement completed Roxana Asencio RN [facility] [employer] [facility] 11/26/2022 10:47:05 Imaging Results None recorded. Procedure Notes None recorded. Medical Equipment None Reported. Allergies No known drug allergies Medications Name Sig Start Date Stop Date Status Note LastModified by Organization Details LastModified Time atorvastati n 40 mg tablet TAKE 1 TABLET BY MOUTH EVERY DAY 2023 active Not Available Not Available Not Avai lable atorvastati n 20 mg tablet TAKE 1 TABLET BY MOUTH EVERY DAY 11/26 completed Not Available Not Available Not Available atorvastati n 10 mg tablet TAKE 1 TABLET BY MOUTH EVERY DAY 11/26 completed Not Available Not Available Not Available lisinopril 20 mg tablet TAKE 1 TABLET BY MOUTH EVERY DAY 03/18 completed Not Available Not Available Not Available isosorbide mononitrate ER 30 mg tablet,exte nded release 24 hr TAKE 1 TABLET BY MOUTH EVERY DAY 2023 active Not Available Not Available Not Avai lable clopidogrel 75 mg tablet TAKE 1 TABLET BY MOUTH EVERY DAY 2023 active Not Available Not Available Not Avai lable Unithroid 125 mcg tablet TAKE 1 TABLET BY MOUTH EVERY DAY 2024 active Not Available Not Available Not Avai lable levothyroxi ne 100 mcg tablet Take 1 tablet every day by oral route. 07/02 completed Not Available Not Available Not Available levothyroxi ne 50 mcg tablet TAKE 1 TABLET BY MOUTH EVERY DAY FOR 7 DAYS. INCREASE TO 100 MCG DAILY 11/26 completed Not Available Not Available Not Available levothyroxi ne 150 mcg tablet Take 1 tablet every day by oral route. 11/26 completed Not Available Not Available Not Available nicotine 21 mg/24 hr daily transdermal patch APPLY 1 PATCH ONTO THE SKIN ONCE DAILY active Not Available Not Available No t Available nitroglycer in 0.4 mg sublingual tablet TAKE 1 TABLET BY MOUTH NEEDED FOR CHEST PAIN EVERY 5 MIN FOR 3 DOSES, IF PAIN PERSISTS SEE DOCTOR active Not Available Not Available No t Available aspirin 81 mg chewable tablet TAKE 1 TABLET BY MOUTH DAILY active Not Available Not Available No t Available ezetimibe 10 mg tablet TAKE 1 TABLET BY MOUTH EVERY DAY active Not Available Not Available No t Available cyclobenzap rine 5 mg tablet 04/08 completed Not Available Not Available Not Available Low Dose Aspirin 07/02 completed Not Available Not Available Not Available Vitals Date Recorded Body height Body mass index (BMI) Body weight Body temperature Heart rate Systolic blood pressure Diastolic blood pressure Provider Name and Address Organization Details Last Updated DateTime 3 185.42 cm 24.1 kg/m2 84838.4 g 98.5 [degF] 75 /min 122 mm[Hg] 76 mm[Hg] Roxana michelle RN [place] [facility] [place] [employer] [facility] 3 10:48:53 Date Recorded Body mass index (BMI) Body height Heart rate Body temperature Body weight Systolic blood pressure Diastolic blood pressure Provider Name and Address Organization Details Last Updated DateTime 1 23.1 kg/m2 185.42 cm 78 /min 97.4 [degF] 25132.6 6 g 110 mm[Hg] 60 mm[Hg] Not Available [facility] 3 17:46:37 Date Recorded Body height Body mass index (BMI) Body weight Body temperature Heart rate Systolic blood pressure Diastolic blood pressure Provider Name and Address Organization Details Last Updated DateTime 4 185.42 cm 26.7 kg/m2 93113.6 6 g 97.4 [degF] 72 /min 136 mm[Hg] 88 mm[Hg] OTTONIEL Schulte [facility] [facility] 4 10:54:38 Date Recorded Body height Body mass index (BMI) Body weight Body temperature Heart rate Oxygen saturation Oxygen saturation in Arterial blood by Pulse oximetry Systolic blood pressure Diastolic blood pressure Provider Name and Address Organization Details Last Updated DateTime 4 185.42 cm 27.5 kg/m2 65832.0 1 g 96.8 [degF] 77 /min 97 % 97 % 128 mm[Hg] 84 mm[Hg] Cathi Beatty MA [facility] 4 10:12:52 Social History Question Answer Notes LastModified by Organization Details LastModified Time Tobacco Smoking Status Current Every Day Smoker Roxana Asencio RN [facility], [place] [facility] 11/26/2022 10:46:11 Do You Have An Advance Directive? No MIGRATION.030 [id number] Information not available 10/31/2022 How Many Years Have You Consumed Alcohol? 30 MIGRATION.[id number] Information not available 10/31/2022 Do You Wear A Helmet When Biking? No No Bike Riding MIGRATION.030 223831 Information not available 10/31/2022 Are You Blind Or Do You Have Difficulty Seeing? No MIGRATION.030 271821 Information not available 10/31/2022 What Is Your Level Of Caffeine Consumption? Moderate MIGRATION.030 040727 Information not available 10/31/2022 What Is Your Code Status? Other No Code Status MIGRATION.030 630874 Information not available 10/31/2022 In The 14 Days Before Symptom Onset, Have You Had Close Contact With A Laboratory-confi rmed COVID-19 While That Case Was Ill? No MIGRATION.030 495939 Information not available 10/31/2022 In The 14 Days Before Symptom Onset, Have You Had Close Contact With A Person Who Is Under Investigation For COVID-19 While That Person Was Ill? No MIGRATION.0301 446875 Information not available 10/31/2022 Are You Deaf Or Do You Have Serious Difficulty Hearing? No MIGRATION.0301 966652 Information not available 10/31/2022 What Type Of Diet Are You Following? REGULAR MIGRATION.0301 842993 Information not available 10/31/2022 What Is The Highest Grade Or Level Of School You Have Completed Or The Highest Degree You Have Received? SF97619-5 MIGRATION.030 248969 Information not available 10/31/2022 How Many Days Of Moderate To Strenuous Exercise, Like A Brisk Walk, Did You Do In The Last 7 Days? 6 MIGRATION.030 554847 Information not available 10/31/2022 Have There Been Any Changes To Your Family Or Social Situation? No MIGRATION.0301 241023 Information not available 10/31/2022 What Is The Fluoride Status Of Your Home? Unknown MIGRATION.030 037623 Information not available 10/31/2022 Are There Any Guns Present In Your Home? No MIGRATION.0301 554778 Information not available 10/31/2022 Do You Use Insect Repellent Routinely? No MIGRATION.0301 313807 Information not available 10/31/2022 Where Do You Live? SingleLevelHouse MIGRATION.030 871416 Information not available 10/31/2022 Do You Have A Medical Power Of Material Control Analyst? No MIGRATION.0301 187410 Information not available 10/31/2022 What Was The Date Of Your Most Recent Tobacco Screening? 07/02/2024 Information not available 07/02/2024 Have You Ever Been Counseled For Unhealthy Alcohol Use? No MIGRATION.0301 353427 Information not available 10/31/2022 Do You Have Any Pets? Yes MIGRATION.0301 792018 Information not available 10/31/2022 What Is Your Relationship Status? Domestic Partner Engaged Information not available 11/26/2022 Do You Use Your Seat Belt Or Car Seat Routinely? Yes MIGRATION.0301 043935 Information not available 10/31/2022 Do You Have Smoke And Carbon Monoxide Detectors In Your Home? Yes MIGRATION.0301 746022 Information not available 10/31/2022 At What Age Did You Start Smoking Tobacco? 17 MIGRATION.0301 915071 Information not available 10/31/2022 Are You Passively Exposed To Smoke? Yes MIGRATION.0301 181342 Information not available 10/31/2022 Are There Any Smokers In Your House? Yes MIGRATION.0301 967412 Information not available 10/31/2022 What Types Of Sporting Activities Do You Participate In? None MIGRATION.0301 321973 Information not available 10/31/2022 Do You Use Sunscreen Routinely? Yes MIGRATION.0301 348264 Information not available 10/31/2022 Has Tobacco Cessation Counseling Been Provided? Yes MIGRATION.0301 648906 Information not available 10/31/2022 On What Date Was Tobacco Cessation Counseling Provided? 07/02/2024 Information not available 07/02/2024 How Many Years Have You Smoked Tobacco? 26 MIGRATION.0301 985452 Information not available 10/31/2022 Have You Recently Traveled Abroad? No MIGRATION.0301 160586 Information not available 10/31/2022 Do You Have Difficulty Walking Or Climbing Stairs? No MIGRATION.0301 185972 Information not available 10/31/2022 Do You Have Any Dietary Restrictions? No MIGRATION.0301 910986 Information not available 10/31/2022 Sex: Male Functional Status Question Answer Note LastModified by Organizat ion Details LastModified Time Do you use any illicit or recreational drugs? No MIGRATION.48954 83147 Information not available 10/31/2022 Do you or have you ever used any other forms of tobacco or nicotine? Yes Patches Information not available 07/02/2024 What is your level of alcohol consumption? Occasional MIGRATION.38595 20675 Information not available 10/31/2022 Are you currently employed? No Information not available 11/26/2022 Do you have transportation difficulties? No MIGRATION.45282 17989 Information not available 10/31/2022 Are you able to walk? YESWOREST MIGRATION.97428 79732 Information not available 10/31/2022 Do you have difficulty doing errands alone? No MIGRATION.23372 06492 Information not available 10/31/2022 Are you able to care for yourself? 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 No MIGRATION.14898 80620 Information not available 10/31/2022 What is your exercise level? Moderate MIGRATION.31853 63265 Information not available 10/31/2022 Mental Status Question Answer Note LastModified by Organizat ion Details LastModified Time Do you feel stressed (tense, restless, nervous, or anxious, or unable to sleep at night)? [id number] MIGRATION.[id number] 26 Information not available 10/31/2022 Do you have difficulty concentrating, remembering or making decisions? No MIGRATION.71828601 26 Information not available 10/31/2022 Family History Relationship Description Onset Age of this Age Resolved Age Notes LastModified by Organization Details LastModified Time Mother Malignant tumor of pharynx MIGRATION.840 [id number] Not available 10/31/2022 17:46:29 Father Rheumatoid arthritis MIGRATION.256 [id number] Not available 10/31/2022 17:46:29 Medical History Condition Response NERVE DISEASE N BLINDNESS N RHEUMATIC FEVER N KIDNEY STONES N BLADDER PROBLEMS N MRSA N OTHER # 1 Y POLIO N LUNG DISEASE/DISORDER N HISTORY OF DRUG ABUSE N RADIATION / CHEMOTHERAPY N COPD N Other # 2 N BLOOD DISEASES N EAR OR HEARING PROBLEMS N MUMPS N SHINGLES N BOWEL PROBLEMS N DEPRESSION (INCLUDING POST ) N STROKE/TIA N ULCERS N BENIGN PROSTATIC HYPERPLASIA N MEASLES N HYPOTENSION N MYOCARDIAL INFARCTION N OBESITY N GERD/NAUSEA N ANEURYSM N URINARY/BLADDER/KIDNEY PROBLEMS N CORONARY ARTERY DISEASE (CAD) N ADDICTION CONCERNS N Impotence N ENDOMETRIOSIS N USE OF BLOOD THINNERS N SKIN PROBLEMS N GASTROINTESTINAL DISORDER N PERIPHERAL VASCULAR DISEASE N MUSCLE,JOINT OR BONE PROBLEMS N GASTROINTESTINAL BLEEDING N BLOOD CLOTS N ASTHMA N CATARACTS N ERECTILE DYSFUNCTION N VARICOSITIES N GI PROBLEMS N Low Testosterone N INFERTILITY N AIDS/HIV N CHEMOTHERAPY / RADIATION N LIVER DISEASE N MALE HYPOGONADISM N HYPERTENSION Y Deficiency N TOURETTE'S N ANXIETY DISORDER N BLOOD TRANSFUSION N ANEMIA/BLOOD DISORDER N CHRONIC EAR INFECTIONS N BRONCHITIS N TUBERCULOSIS N GLAUCOMA N FOOT PROBLEM N DIVERTICULITIS N SLEEP APNEA N CHICKENPOX N INFECTIOUS DISEASE N PROSTATE N HEART ARRHYTHMIA N INSOMNIA N HIGH CHOLESTEROL / HYPERLIPIDEMIA N EYE PROBLEMS N HYPERTHYROIDISM N EDEMA N CHRONIC PAIN SYNDROME N HYPOTHYROIDISM Y CONSTIPATION N CAROTID BLOCKAGE N BACK / NECK PROBLEMS N HAVE YOU BEEN HOSPITALIZED OR SEEN IN [facility] IN THE PAST YEAR ? Y ATHEROSCLEROSIS N BREAST PROBLEMS N DIALYSIS N ECZEMA N OSTEOPOROSIS N ARTHRITIS N APPENDICITIS N DIABETES, TYPE N BAD TEETH N ENT N HEARTBURN / REFLUX N AUTISM SPECTRUM DISORDER (ASD) N HEPATITIS / LIVER DISEASE N GOUT N SLEEP DISORDER N ALZHEIMER'S DISEASE N Brain Problems N DEMENTIA N HERPES N SEIZURES/EPILEPSY N HEADACHES/MIGRAINES N VASCULAR DISEASE N PACEMAKER N Blood Disorder N DIZZINESS N HEART DISEASE/HEART PROBLEMS N KIDNEY DISEASE N MULTIPLE SCLEROSIS N CANCER: SPECIFY N CARDIAC ARRHYTHMIA N ATRIAL FIBRILLATION N Gall Stones N PULMONARY EMBOLISM N AUTOIMMUNE DISEASE N Past Encounters Encounter ID Performer Location Encounter Start Date Encounter Closed Date Diagnosis/Indication Diagnosis SNOMED-CT Code Diagnosis ICD10 Code Diagnosis Note [id number] Rupert Lopes MD [facility] Internal Med [facility] [address] [address] 03/27/2021 00:00:00 04/01/2021 14:45:26 [id number] Rupert Lopes MD [facility] Internal Med [facility] [address] [address] 11/26/2022 10:32:45 11/26/2022 11:25:07 Transition of care 5438146281 105 Z75.8 Dyslipidemia 012968043 E 78.5 Essential hypertension 75441592 I10 Hypothyroidism 57990942 E03.9 Coronary atherosclerosis 543414961 I25.10 [id number] Yamilex beauchamp MD [facility] [place] Internal Med Roderick de la rosa [address] [facility] [place] [address] 04/08/2024 10:01:53 04/08/2024 11:35:25 Screening - NAD 615888483 Z13.9 C-scope: Does not want to do c-scope, agreeable to get Cologuard, referred 04/08/2024 Get yearly flu shot, get tdap if not doneCan do COVID 19 vaccine and its boosters RTC in 3 months, do labs, ER if worse Hyperlipidemia 49671660 E78.5 On atorvastat in 40mg dailyGet labs Hypothyroidism 09787638 E03.9 On levothyrox ine 100mcgs dailyGet labs Coronary arteriosclerosis 42064064 I25.10 On ASAOn plavixOn imdur 30mg daily S/p CAD, s/p [facility] 10/07/2023 Screening for malignant neoplasm of colon 482526753 Z12.11 Pain of le ft shoulder joint 2199657096 9155769 M25.512 Cigarette smoker 6022851 7 F17.210 Serum jeb min B12 below reference range 212674285 R79.89 [id number] Yamilex beauchamp MD [facility] Internal Med [facility] [address] [place] [address] 07/02/2024 09:59:30 07/02/2024 10:55:12 Screening - NAD 421058124 Z13.9 C-scope: Does not want to do c-scope, agreeable to get Cologuard, referred 04/08/2024 Get yearly flu shot, get tdap if not doneCan do COVID 19 vaccine and its boosters RTC in 3 months, do labs, ER if worse Hyperlipidemia 99897228 E78.5 Not on atorvastat in 40mg dailyOn zetiaGet labs Hypothyroidism 68915621 E03.9 S/p d/c from [facility] 06/22/2024 , was profoundly hypothyroi d as he was not taking his levothyrox ineTSH 06/21/2024 at [facility] 203.00H On levothyrox ine 125mcgs daily, renewed 07/02/2024 Get labs Coronary arteriosclerosis 56893068 I25.10 On ASAOn plavixOn imdur 30mg dailyOn NTG S/p CAD, s/p stentDr [facility] 10/07/2023 Screening for malignant neoplasm of colon 072724789 Z12.11 Cigarette smoker 4423645 7 F17.210 Advised to quit smoking!Ge t [place] [employer] at age 66 years Serum jeb min B12 below reference range 568846639 R79.89 Prediabetes 780712047 R7 3.03 Repeat the labsNot on any meds Chronic ki dney disease 600292259 N18.9 Noted at labs done at [facility] hospitalis t 06/22/2024 GFR 55, BUN 1.39Refer to nephrology Health Concerns Section Related Observation LastModified by Organization Detai ls LastModified Time None Recorded Concern Status LastModified by Organization Details LastModified Time None Recorded Advance Directives Directive N: Payers Insurance Date Sequence Insurance Name Policy Number Policy [place] Covered Member ID [place] Member ID Guarantor Name 07/02/2024 1 [place] ([place]) [id number] Isael Kumar [id number] Isael Kumar 08/18/2024 1 [facility] [id number] Isael Kumar [id number] Isael Kumar Notes Date Note Type Note Provider Name and Address Organization Details Recorded Time 11/26/2022 text/html Chest pain hospi sadia cardiac catheterization previous stent patent LV function normalTSH 89Hemoglobin A1c 6.5 Rupert Lopes MD [address], [place], [address], [employer] 12/08/2022 21:00:04 04/08/2024 text/html OV 04/08/2024:He re to establish care Present Hx:HLDCADSmokerPain in L shoulder Here to discuss above, get labs, also has been off work since about a month for L shoulder pain which is now resolved and wants to get paper work for his return to work Yamilex Torres MD [address], [place], [address], [employer] 04/08/2024 14:42:21 07/02/2024 text/html OV 04/08/2024:He re to establish care Present Hx:HLDCADSmokerPain in L shoulder Here to discuss above, get labs, also has been off work since about a month for L shoulder pain which is now resolved and wants to get paper work for his return to work OV 07/02/2024: Here for his f/u apt, he is doing well today, he was admitted and d/c from the hospital for low thyroid, now does well Yamilex Torres MD [address], [place], [address], [employer] 07/02/2024 18:15:01
[2025-03-02 06:18] LABS: Magnesium 2.0 mg/dL (1.6-2.3)
[2025-03-02 06:55] LABS: Influenza A QL RT-PCR Negative (Negative); Influenza B QL RT-PCR Negative (Negative); RSV RNA, RT-PCR Negative (Negative); SARS-CoV-2 RNA PCR Negative (Negative)
--- NOTE | 2025-03-02 07:17 | ECG_ITS ---
Test Date: 2025-03-02 07:08:35 Measurements Intervals [place] Rate: 67 P: 22 AK: 148 QRS: 24 QRSD: 85 T: 45 QT: 406 QTc: 429 Interpretive Statements SINUS RHYTHM Compared to ECG 03/02/2025 04:11:05 No significant changes Electronically Signed On 03-02-2025 18:00:59 CDT by Marin Maki
[2025-03-02] MEDS: MORPHINE SULFATE (*CRX) 4 MG/ML INJ IV PUSH (07:25)
[2025-03-02 07:30] LABS: Troponin I < 0.012 ng/mL (0.000-0.034)
--- NOTE | 2025-03-02 08:27 | PC.NURSE ---
Patient states that he feels weak, and shakey upon getting dressed for discharge. patient provided crackers and a pepsi because he states he hasn't eaten today.
== END 2025-03-02 08:01 | disposition home or self-care (01) ==
PROVIDERS: Emergency Provider Student in an Organized Health Care Education/Training Program
DX: R07.9 Chest pain, unspecified (principal); D75.839 Thrombocytosis, unspecified; E87.6 Hypokalemia; Z76.0 Encounter for issue of repeat prescription; Z20.822 Contact with and (suspected) exposure to COVID-19; I10 Essential (primary) hypertension; I25.2 Old myocardial infarction; E78.5 Hyperlipidemia, unspecified; Z95.5 Presence of coronary angioplasty implant and graft; Z79.02 Long term (current) use of antithrombotics/antiplatelets; Z79.899 Other long term (current) drug therapy; Z79.82 Long term (current) use of aspirin; R94.31 Abnormal electrocardiogram [ECG] [EKG]
CPT/HCPCS: 36415; 71046; 80053; 83735; 83880; 84484; 85025; 85380; 87637; 93005; 96374; 99284; A9270; J2270